=== PATIENT | male | born 1990 | race Two or more races ===

== ENCOUNTER 2020-08-13 00:19 | Emergency (ER) | payer OTHER ==
[~2020-08-13] VITALS: Ht 175.3 cm; Wt 100.2 kg
[2020-08-13 00:37] VITALS: Ht 175.3 cm; Wt 100.2 kg
[2020-08-13 02:31] VITALS: BP 120/81
== END 2020-08-13 02:32 | disposition home or self-care (01) ==
LOC: ED 00:19
DX: S42.252A Displaced fracture of greater tuberosity of left humerus, initial encounter for closed fracture (principal); Z98.890 Other specified postprocedural states; Z88.8 Allergy status to other drugs, medicaments and biological substances; V00.131A Fall from skateboard, initial encounter; Y93.51 Activity, roller skating (inline) and skateboarding; Y92.89 Other specified places as the place of occurrence of the external cause; Y99.8 Other external cause status
CPT/HCPCS: J1885